=== PATIENT | male | born 1990 | race Caucasian/White ===

== ENCOUNTER 2016-10-17 23:24 | Emergency (ER) | payer MEDICAID ==
[~2016-10-17] VITALS: Ht 185.4 cm; Wt 118.0 kg
[2016-10-18] MEDS ORDERED: KETOROLAC 60MG/2ML VIAL IM ONE (02:30)
[2016-10-18] MEDS ORDERED: METHOCARBAMOL 500MG TABLET PO ONE (02:30)
[2016-10-18 05:03] VITALS: BP 128/76
== END 2016-10-18 05:03 | disposition home or self-care (01) ==
LOC: ER 23:51
DX: M54.5 Low back pain (principal); G89.29 Other chronic pain; R93.7 Abnormal findings on diagnostic imaging of other parts of musculoskeletal system
CPT/HCPCS: 72100; 96372; 99284; J1885